=== PATIENT | male | born 1990 | race Caucasian/White ===

== ENCOUNTER 2022-05-09 09:40 | Emergency (ER) | payer OTHER, SELFPAY ==
--- NOTE | ~2022-05-09 | CT_ITS ---
EXAMINATION: CT abdomen pelvis w con DATE: 05/09/2022 11:44 INDICATION: Lower abdominal pain, nausea and diarrhea TECHNIQUE: Computed tomography (CT) of the abdomen and pelvis was performed with 100 mL Omnipaque-350 intravenous contrast. Automated exposure control and iterative reconstruction technique were employe d. The dose-length product was 753.73 mGy-cm. COMPARISON: None FINDINGS: Lung bases are clear. Heart size is normal. No pericardial or pleural effusion. Mild focal hepatic st eatosis at the ligamentum teres. Cholecystectomy clips at the gallbladder fossa. Splenomegaly measuri ng 14.9 cm . Pancreas, bilateral adrenal glands and kidneys are normal. Fluid throughout the otherwis e normal-appearing colon consistent with nonspecific diarrhea. Appendix is normal. 3-4 cm long likely transient small bowel intussusception in the right abdomen with the entrance to the intussusception seen on series 3, image [id number]. Small bowel intussusception is normal with no evident lead mass. No ob struction. Bladder is normal. No free intraperitoneal gas or fluid. No pathologically enlarged abdomi nal or pelvic lymphadenopathy. Mild thoracic spondylosis. Transitional L5 segment with decreased disc height and left sided sacralization. IMPRESSION: 1. Nonspecific diarrhea within otherwise normal appearing:. Correlate clinically for enteritis. 2.. Nonobstructing likely 3-4 cm long small bowel intussusception in the right abdomen without eviden t lead mass. Reviewed, dictated and finalized at location [facility] IMPRESSION: 1. Nonspecific diarrhea within otherwise normal appearing:. Correlate clinicall y for enteritis. 2.. Nonobstructing likely 3-4 cm long small bowel intussusception in the right abdomen without evident lead mass.
[2022-05-09 10:14] VITALS: PULSE 98; RESP 16; TEMP 36.2; O2SAT 98
[2022-05-09 10:55] LABS: Basophils Percent Auto 0.5 % (0.2-1.2); Eosinophils Percent Auto 0.7 % (0-4.4); Hematocrit 55.6 % (42.0-52.0); Hemoglobin 19.3 g/dL (14.0-18.0); Immature Granulocyte Absolute 0.06 K/mm3 (0.00-0.031); Lymphocytes Absolute Auto 0.86 K/mm3 (0.9-3.2); Lymphocytes Percent Auto 14.7 % (18.3-44.2); Mean Corpuscular HGB Conc 34.7 g/dl (32-36); Mean Corpuscular Hemoglobin 29.5 pg (26-34); Mean Corpuscular Volume 84.9 fl (80-100); Mean Platelet Volume 10.5 fl (7.4-10.4); Monocytes Absolute Auto 0.8 K/mm3 (0.1-0.6); Monocytes Percent Auto 14.2 % (2.6-8.5); Neutrophils Percent Auto 68.9 % (45.5-73.1); Platelet Count Result 247 k/mm3 (150-375); Red Blood Count 6.55 M/mm3 (4.6-6.20); Red Cell Distribution Width 12.6 % (11.5-14.5); White Blood Count 5.9 K/mm3 (4.5-10.0)
[2022-05-09 11:02] LABS: Alanine Aminotransferase 38 U/L (6-50); Albumin Level 5.3 g/dL (3.5-5.1); Alkaline Phosphatase 82 U/L (38-126); Anion Gap 18 mmol/L (8-16); Aspartate Amino Transferase 32 U/L (17-59); Bilirubin,Total 1.1 mg/dL (0.2-1.3); Blood Urea Nitrogen 21 mg/dL (9-20); Calcium 9.2 mg/dL (8.4-10.2); Carbon Dioxide 15 mmol/L (22-30); Chloride 103 mmol/L (98-107); Estimated Glomerular Filt Rate > 60; Glucose 106 mg/dL (65-110); Lipase 31 U/L (23-300); Potassium 3.7 mmol/L (3.4-5.0); Sodium 136 mmol/L (137-145)
[2022-05-09 11:51] VITALS: BP 122/87; PULSE 107
[2022-05-09] MEDS: ONDANSETRON INJ 4 MG/2 ML VIAL IV PUSH (11:52)
[2022-05-09] MEDS: FAMOTIDINE 20 MG/2 ML VIAL IV PUSH (11:52)
[2022-05-09] MEDS: SODIUM CHLORIDE 0.9% IV 1,000 ML 999 ML IV CONT ×2 (11:53→13:14)
[2022-05-09] MEDS: DICYCLOMINE HCL INJ 20 MG/2 ML VIAL IM (11:53)
--- NOTE | 2022-05-09 12:45 | ED.GENADULT ---
HPI - General Adult General Chief complaint: Abdominal Pain Stated complaint: flu symptoms Time Seen by Provider: 05/09/22 10:51 Source: patient and family Mode of arrival: other Limitations: no limitations History of Present Illness HPI narrative: Suraj Palmer is a 31 y/o male who presents today with complaints of diarrhea that has been constant for the past two days. He reports of generalized abdominal pain and nausea no vomiting. Denies blood in stool, report diarrhea is yellowish now. Related Data Allergies Allergy/AdvReac Type Severity Reaction Status Date / Time Penicillins Allergy Unknown Verified 05/09/22 11:10 Review of Systems Review of Systems: CONSTITUTIONAL: reports feeling hot and cold EYES: Denies visual changes, redness, or discharge. ENT: Denies rhinorrhea, congestion, sore throat, or otalgia. CARDIOVASCULAR: Denies chest pain, palpitations, or edema. RESPIRATORY: Denies cough or dyspnea. GASTROINTESTINAL: Reports generalized abdominal pain, diarrhea for 2 days, nausea no vomiting GENITOURINARY: Denies dysuria or hematuria. SKIN: Denies rash or itching. MUSCULOSKELETAL: Denies back pain, joint pain, or myalgia. NEUROLOGIC: Denies headache, numbness, dizziness, or weakness. PSYCHIATRIC: Denies anxiety or depression. Exam Narrative: GENERAL: Well-appearing, well-nourished, and in no acute distress. HEAD: Normocephalic, atraumatic. EYES: PERRLA and EOMI. ENT: Nares clear, no rhinorrhea or epistaxis. Mucous membranes moist. Oropharynx without tonsillar hypertrophy exudate or other lesions. NECK: Supple. No adenopathy or masses. No carotid bruits or JVD CHEST: Clear to auscultation. No respiratory distress. No wheezes rales or rhonchi HEART: Regular rate and rhythm. No murmur heard. Normal peripheral pulses. ABDOMEN: Soft, pain with palpation, generalized, bowel sounds present EXTREMITIES: Normal range of motion. No edema. SKIN: Warm, dry, no rash. NEURO: No focal deficits. Alert and oriented x3. PSYCH: Normal mood and affect. Noted Course Vital Signs Vital signs: Vital Signs Temperature 36.2 C L 05/09/22 10:14 Pulse Rate 98 05/09/22 10:14 Respiratory Rate 16 05/09/22 10:14 Pulse Oximetry 98 05/09/22 10:14 Oxygen Delivery Room Air 05/09/22 10:14 Temperature 36.2 C L 05/09/22 10:14 Pulse Rate 107 H 05/09/22 11:51 Respiratory Rate 16 05/09/22 10:14 Blood Pressure 122/87 05/09/22 11:51 Pulse Oximetry 98 05/09/22 10:14 Oxygen Delivery Room Air 05/09/22 10:14 Medical Decision Making MDM Narrative Medical decision making narrative: Patient reports diarrhea that has been constant for two days along with generalized abdominal pain. Patient reports his diarrhea has been yellow in color denies blood in stool, reports nausea but has not vomited. On exam pt's lung sounds clear, respirations even, unlabored, abdomen soft, bowel sounds present, pain noted with palpation throughout. Plan to check lab work/ stool sample/ ct of abdomen pelvis Concern for: gastroenteritis/ colitis/ cdif / bowel obstruction/ Patient labs resulted that pt is fairly dehydrated with an anion gap of 18, CT scan stable showing enteritis. Collaborated with Dr. Schulz and plan to hydrate with another liter of NS, treat with IV flagyl once stool sample sent and then repeat BMP in an hour. Updated pt and family on plan of care and pt and family agrees with plan. Patient reports feeling better at this time. Repeat BMP is improved, updated pt and pt's family and they agree with being d/c home with PO Flagyl as Dr. Schulz recommends. All quesitons answered. Differential Diagnosis Differential Diagnosis: gastroenteritis/ colitis/ cdif/ bowel obstruction/ Vital Signs Vital Signs: Vital Signs Temperature 36.2 C L 05/09/22 10:14 Pulse Rate 98 05/09/22 10:14 Respiratory Rate 16 05/09/22 10:14 Pulse Oximetry 98 05/09/22 10:14 Oxygen Delivery Room Air 05/09/22 10:
[2022-05-09 13:36] LABS: Add Urine Microscopic? YES; Appearance Urine Clear (Clear); Bilirubin Urine 1+ (Negative); Blood Urine 1+ (Negative); Color Urine Yellow (Yellow); Glucose Urine UA Negative (Negative); Ketones Urine 2+ mg/dL (Negative); Leukocyte Esterase Ur Negative LEU/UL (Negative); Nitrate Urine Negative (Negative); Protein Urine 1+ mg/dL (Negative); Specific Grav Ur <= 1.005 (1.001-1.035); Urobilinogen Urine 0.2 mg/dL (<2.0); pH Urine 5.5 (5.0-9.0)
[2022-05-09 13:50] LABS: Mucus Urine Few /lpf; Squamous Epithelial Cell Urine Rare /hpf (Few); WBC Urine 0-3 /hpf
[2022-05-09] MEDS: metroNIDAZOLE 500 MG/ISO 100ML 500 MG/100 ML BAG 100 MG IVPB (14:16)
[2022-05-09 14:23] LABS: Toxigenic C. Diff NEGATIVE (NEGATIVE)
[2022-05-09 15:36] LABS: Anion Gap 11 mmol/L (8-16); Blood Urea Nitrogen 18 mg/dL (9-20); Calcium 8.3 mg/dL (8.4-10.2); Carbon Dioxide 20 mmol/L (22-30); Chloride 105 mmol/L (98-107); Estimated Glomerular Filt Rate > 60; Glucose 97 mg/dL (65-110); Potassium 3.9 mmol/L (3.4-5.0); Sodium 136 mmol/L (137-145)
--- NOTE | 2022-05-09 16:55 | ED.GENADULT ---
HPI - General Adult General Chief complaint: Abdominal Pain Stated complaint: flu symptoms Time Seen by Provider: 05/09/22 10:51 Source: patient and family Mode of arrival: other Limitations: no limitations Related Data Allergies Allergy/AdvReac Type Severity Reaction Status Date / Time Penicillins Allergy Unknown Verified 05/09/22 11:10 Course Vital Signs Vital signs: Vital Signs Temperature 36.2 C L 05/09/22 10:14 Pulse Rate 98 05/09/22 10:14 Respiratory Rate 16 05/09/22 10:14 Pulse Oximetry 98 05/09/22 10:14 Oxygen Delivery Room Air 05/09/22 10:14 Temperature 36.2 C L 05/09/22 10:14 Pulse Rate 107 H 05/09/22 11:51 Respiratory Rate 16 05/09/22 10:14 Blood Pressure 122/87 05/09/22 11:51 Pulse Oximetry 98 05/09/22 10:14 Oxygen Delivery Room Air 05/09/22 10:14 Medical Decision Making Vital Signs Vital Signs: Vital Signs Temperature 36.2 C L 05/09/22 10:14 Pulse Rate 98 05/09/22 10:14 Respiratory Rate 16 05/09/22 10:14 Pulse Oximetry 98 05/09/22 10:14 Oxygen Delivery Room Air 05/09/22 10:14 Temperature 36.2 C L 05/09/22 10:14 Pulse Rate 107 H 05/09/22 11:51 Respiratory Rate 16 05/09/22 10:14 Blood Pressure 122/87 05/09/22 11:51 Pulse Oximetry 98 05/09/22 10:14 Oxygen Delivery Room Air 05/09/22 10:14 Lab Data 05/09/22 10:33 05/09/22 15:17 Labs: Lab Results 05/09/22 05/09/22 05/09/22 Range/Units 10:33 10:33 13:15 WBC 5.9 (4.5-10.0) K/mm3 RBC 6.55 H (4.6-6.20) M/mm3 Hgb 19.3 H (14.0-18.0) g/dL Hct 55.6 H (42.0-52.0) % MCV 84.9 (80-100) fl MCH 29.5 (26-34) pg MCHC 34.7 (32-36) g/dl RDW 12.6 (11.5-14.5) % Plt Count 247 (150-375) k/mm3 MPV 10.5 H (7.4-10.4) fl Immature Gran % (Auto) 1.0 H (0-0.5) % Neut % (Auto) 68.9 (45.5-73.1) % Lymph % (Auto) 14.7 L (18.3-44.2) % [place] % (Auto) 14.2 H (2.6-8.5) % Eos % (Auto) 0.7 (0-4.4) % Baso % (Auto) 0.5 (0.2-1.2) % Lymph # (Auto) 0.86 L (0.9-3.2) K/mm3 [place] # (Auto) 0.8 H (0.1-0.6) K/mm3 Eos # (Auto) 0.0 (0-0.3) K/mm3 Baso # (Auto) 0.0 (0.0-0.1) K/mm3 Abs Immat Gran (auto) 0.06 H (0.00-0.031) K/mm3 Absolute Neuts (auto) 4.0 (1.3-6.7) K/mm3 Absolute Nucleated RBC 0.0 (0.0-0.012) K/mm3 Nucleated RBC % 0.0 (0.0-0.2) % Sodium 136 L (137-145) mmol/L Potassium 3.7 (3.4-5.0) mmol/L Chloride 103 (98-107) mmol/L Carbon Dioxide 15 L (22-30) mmol/L Anion Gap 18 H (8-16) mmol/L BUN 21 H (9-20) mg/dL Creatinine 1.10 (0.7-1.3) mg/dL Estim Creat Clear Calc Not Reportable Estimated GFR > 60 (59 - ) Glucose 106 (65-110) mg/dL Calcium 9.2 (8.4-10.2) mg/dL Total Bilirubin 1.1 (0.2-1.3) mg/dL AST 32 (17-59) U/L ALT 38 (6-50) U/L Alkaline Phosphatase 82 (38-126) U/L Total Protein 9.0 H (6.3-8.2) g/dL Albumin 5.3 H (3.5-5.1) g/dL Lipase 31 (23-300) U/L Urine Color Yellow (Yellow) Urine Appearance Clear (Clear) Urine pH 5.5 (5.0-9.0) Ur Specific [place] <= 1.005 (1.001-1.035) Urine Protein 1+ H (Negative) mg/dL Urine Glucose (UA) Negative (Negative) mg/dL Urine Ketones 2+ H (Negative) mg/dL Ur Blood (Man) 1+ H (Negative) Urine Nitrate Negative (Negative) Urine Bilirubin 1+ H (Negative) Urine Urobilinogen 0.2 (<2.0) mg/dL Leukocyte Esterase Rfl Negative (Negative) [place]/UL Urine RBC 3-5 H (0-2) /hpf Urine WBC 0-3 /hpf Ur Squamous Epith Cells Rare (Few) /hpf Urine Mucus Few H /lpf C. difficile (PCR) (NEGATIVE) Ova & Parasites 05/09/22 05/09/22 05/09/22 Range/Units 13:16 13:16 15:17 WBC (4.5-10.0) K/mm3 RBC (4.6-6.20) M/mm3 Hgb (14.0-18.0) g/dL Hct (42.0-52.0) % MCV (80-100) fl MCH (26-34) pg MCHC (32-36) g/dl RDW (11.5-14.5) %
== END 2022-05-09 16:56 | disposition home or self-care (01) ==
PROVIDERS: Family Medicine; Emergency Provider Nurse Practitioner Family
DX: K52.9 Noninfective gastroenteritis and colitis, unspecified (principal); E86.0 Dehydration
CPT/HCPCS: 36415; 74177; 80048; 80053; 81001; 83690; 85025; 87045; 87177; 87209; 87269; 87272; 87427; 87493; 96361; 96365; 96372; 96375; 99284; J0500; J2405; J7030; Q9967